=== PATIENT | female | born 1950 | race American Indian/Alaskan Native ===

== ENCOUNTER 2017-08-03 09:41 | Outpatient (CLI) | payer MEDICARE ==
--- NOTE | 2017-08-03 10:52 | Mammography Report ---
LEFT DIGITAL DIAGNOSTIC MAMMOGRAM and LEFT BREAST ULTRASOUND: 08/03/17 09:41:00 CLINICAL: Recalled for asymmetry. COMPARISON:06/23/17 screening and mammograms from 05/05/16 and 05/29/15. FINDINGS: ML, repeat MLO and spot compression MLO views were performed. An asymmetry persists in the upper breast on ML and MLO views demonstrate satisfactory effacement with both compression. Ultrasound of the upper left breast was performed and demonstrated no mass or shadowing to correlate with the mammographic asymmetry. However, an oval heterogeneous smooth solid mass versus lymph node at 10 o'clock 7 cm from the nipple measures 6 x 6 x 4 mm. It demonstrates posterior enhancement and no blood flow by color Doppler. IMPRESSION: Probably benign 6 mm nodule or lymph node at 10 o'clock 7 cm from the nipple. This lymph node does not correlate with the mammographic asymmetry. However, the mammographic asymmetry is a benign finding which is is unchanged since May 2015. BI-RADS CATEGORY: 3 - - Probably Benign RECOMMENDATION: Six month followup left breast ultrasound to reevaluate the 6 mm nodule at 10 o'clock. ACR BI-RADS MAMMOGRAPHIC CODES: 0 = Needs additional imaging evaluation; 1 = Negative; 2 = Benign; 3 = Probably benign; 4 = Suspicious; 5 = Malignant; 6 = Known biopsy-proven malignancy COMMENT: 1. Dense breast tissue, i.e., adenosis, fibrocystic changes, etc., may obscure an underlying neoplasm. 2. Approximately 10% of cancers are not detected with mammography. 3. A negative mammography report should not delay biopsy if a clinically suspicious mass is present. COMMENT: Patient follow-up letters are generated via our [employer] application.
== END 2017-08-03 09:42 | disposition home or self-care (01) ==
LOC: MAMMO 09:41
PROVIDERS: ATTEND Obstetrics & Gynecology
DX: R92.8 Other abnormal and inconclusive findings on diagnostic imaging of breast (principal); I10 Essential (primary) hypertension
CPT/HCPCS: 76642; G0206

== ENCOUNTER 2018-01-11 10:32 | Outpatient (CLI) | payer MEDICARE ==
--- NOTE | 2018-01-12 12:52 | Ultrasound Report ---
LEFT BREAST ULTRASOUND: 01/11/18 10:32:00 CLINICAL: Six month followup of a 6 mm nodule. COMPARISON: 05/04/17 FINDINGS: Ultrasound of the left breast was performed and demonstrated a questionably larger oval solid smooth heterogeneous hypoechoic mass versus lymph node at 10 o'clock 7 cm from the nipple. It measures slightly smaller at 7 x 4 x 4 mm compared to 6 x 4 x 6 mm on the last exam but the measurement technique may not be consistent. IMPRESSION: A solid 6-7 mm mass versus lymph node at 10 o'clock 7 cm from the nipple. Recommend ultrasound guided needle biopsy to exclude malignancy. BI-RADS 4--Suspicious The patient was told by the technologist at the time of the exam that a biopsy is recommended.
== END 2018-01-11 10:33 | disposition home or self-care (01) ==
LOC: MAMMO 10:32
PROVIDERS: ATTEND Obstetrics & Gynecology
DX: Z13.9 Encounter for screening, unspecified (principal); N63.20 Unspecified lump in the left breast, unspecified quadrant; I10 Essential (primary) hypertension

== ENCOUNTER 2019-09-25 09:32 | Outpatient (CLI) | payer MEDICARE ==
--- NOTE | 2019-09-25 13:05 | Mammography Report ---
DIGITAL SCREENING MAMMOGRAM WITH CAD, 09/25/2019 INDICATION: Routine screening mammography. TECHNIQUE: Digital bilateral 2D mammography was obtained in the craniocaudal and mediolateral obliq ue projections. This examination was interpreted with the benefit of Computer-Aided Detection analysi s. COMPARISON: 08/11/2018 and mammograms going back to 03/29/2015 FINDINGS: Breast Density: The breasts are heterogeneously dense, which may obscure small masses. There is no evidence of dominant mass, suspicious calcifications or architectural distortion in eithe r breast. IMPRESSION: No mammographic evidence of malignancy. Follow up recommendation: Routine yearly BI-RADS Category 1: Negative. A "normal" or negative report should not discourage follow up or biopsy of a clinically significant f inding. A written summary of these findings will be mailed to the patient. The patient will be entered into a mammography reporting system which will generate a reminder letter for the patient's next appointmen t at the appropriate interval. The [employer] recommends yearly mammograms starting at age 40 and continuing as l rene as a woman is in good health. Breast MRI is recommended for women with an approximate 20-25% or greater lifetime risk of breast cancer, including women with a strong family history of breast or ova piper cancer or who have been treated for Hodgkin's disease. Signer Name: Pollo Virgen MD Signed: 09/25/2019 1:00 PM Workstation Name: [id number]
== END 2019-09-25 09:33 | disposition home or self-care (01) ==
LOC: MAMMO 09:32
PROVIDERS: ATTEND Obstetrics & Gynecology
DX: Z12.31 Encounter for screening mammogram for malignant neoplasm of breast (principal)
CPT/HCPCS: 77067